=== PATIENT | male | born 1965 | race African-American/Black ===

== ENCOUNTER 2018-08-19 14:29 | Inpatient (IN) ==
[2018-08-19] MEDS ORDERED: COCAINE SUBSTITUTE 30 ML BOTTLE TOP ONE (15:21)
[2018-08-19 16:04] LABS: Basophils % 0.1 % (0.0-0.8); Eosinophils % 0.2 % (0.00-10.9); Hematocrit 36.6 VOL% (42.0-52.0); Hemoglobin 12.3 GM/DL (14.0-18.0); Immature Granulocytes % 0.7 %; Immature Granulocytes Absolute 0.11 #; Lymphocytes # 2.3 10*3/uL (1.4-4.0); Lymphocytes % 14.3 % (21.2-54.2); Mean Corpuscular HGB Conc 33.6 GM/DL (32-36); Mean Corpuscular Hemoglobin 33 PG (27-34); Mean Corpuscular Volume 98.1 FL (87-102); Mean Platelet Volume 8.6 FL (9.6-12.0); Monocytes # 1.1 10*3/uL (0.11-0.8); Monocytes % 6.5 % (1.7-12.7); Neutrophils # 12.8 10*3/uL (1.4-7.4); Neutrophils % 78.2 % (38.7-73.9); Platelet Count 272 T/CUMM (130-400); Red Blood Count 3.73 MC/CUMM (3.8-5.5); Red Cell Distribution Width 13.9 % (9.3-17.3); White Blood Count 16.3 T/CUMM (4-12)
[2018-08-19 16:50] LABS: Hypochromasia 1+; Lymphocytes 13 % (20-55); Platelet Estimate Normal; Segmented Neutrophils 83 % (50-85); Total Cells Counted 100
[2018-08-19 16:52] LABS: Apearance,Urine CLEAR (Clear); Bilirubin,Urine Negative (Negative); Blood, Urine Negative (Negative); Glucose,Urine (UA) Negative (Negative); Ketones,Urine Negative (Negative); Nitrite,Urine Negative (Negative); Protein,Urine Negative; RBC,Urine 2 /HPF (0-4); Squamous Epithelial Cell,Urine Occasional /HPF (0-10); Urine Color Yellow (Yellow); Urine Specific Gravity 1.017 (1.001-1.035); Urine Urobilinogen < 2.0 EU/DL (0.2-1.0); WBC,Urine 3 /HPF (0-6)
[2018-08-19 16:56] LABS: Anisocytosis 1+
[2018-08-19 16:57] LABS: Microcytosis 1+
[2018-08-19 17:01] LABS: Barbiturates Screen,Urine Negative (Negative); Benzodiazepines Screen,Urine Negative (Negative); Cannabinoid Screen,Urine Negative (Negative); Opiate Screen,Urine Negative (Negative); Phencyclidine Screen,Urine Negative (Negative)
[2018-08-19] MEDS ORDERED: LEVOFLOXACIN INJ 500 MG in PREMIX 1 EACH IV STA (17:02)
[2018-08-19] MEDS ORDERED: SULFAMETHOX/TRIMETHOPRIM 800-160 MG TABLET PO STA (17:02)
[2018-08-19] MEDS ORDERED: ONDANSETRON 4 MG/2 ML VIAL IV PRN (17:37)
[2018-08-19] MEDS ORDERED: ACETAMINOPHEN 325 MG TABLET PO PRN (17:37)
[2018-08-19 18:01] LABS: Alanine Aminotransferase 37 U/L (16-61); Albumin 3.3 G/DL (3.4-5.0); Alkaline Phosphatase 83 U/L (45-117); Aspartate Amino Transferase 35 U/L (0-37); Bilirubin,Total < 0.39 MG/DL (0.2-1.0); Blood Urea Nitrogen 13 MG/DL (7-18); Calcium 8.5 MG/DL (8.5-10.1); Glucose 100 MG/DL (74-106); Osmolality,Calculated 265.4 MOS/KG (273-304); Potassium 4.1 MMOL/L (3.5-5.1); Sodium 133 MMOL/L (136-145); Total Protein 7.8 G/DL (6.4-8.3)
[2018-08-19] MEDS ORDERED: ALBUTEROL 2.5 MG/3 ML NEB RESP TX PRN (19:00)
[2018-08-19] MEDS: ALBUTEROL/IPRATROPIUM 3 ML NEB RESP TX SCH (19:09)
[2018-08-19] MEDS: CARVEDILOL 6.25 MG TABLET PO SCH (21:51)
[2018-08-19] MEDS: GABAPENTIN 100 MG CAPSULE PO SCH (21:51)
[2018-08-19] MEDS: DOXEPIN 100 MG CAPSULE PO SCH (21:54)
[2018-08-20] MEDS: ALBUTEROL/IPRATROPIUM 3 ML NEB RESP TX SCH ×4 (01:00→19:17)
[2018-08-20 05:53] LABS: Basophils % 0.2 % (0.0-0.8); Eosinophils % 0.1 % (0.00-10.9); Hematocrit 36.3 VOL% (42.0-52.0); Hemoglobin 12.3 GM/DL (14.0-18.0); Immature Granulocytes % 0.6 %; Immature Granulocytes Absolute 0.09 #; Lymphocytes % 13.1 % (21.2-54.2); Mean Corpuscular HGB Conc 33.9 GM/DL (32-36); Mean Corpuscular Hemoglobin 33 PG (27-34); Mean Corpuscular Volume 96.5 FL (87-102); Mean Platelet Volume 8.6 FL (9.6-12.0); Monocytes # 1.3 10*3/uL (0.11-0.8); Monocytes % 8.1 % (1.7-12.7); Neutrophils % 77.9 % (38.7-73.9); Platelet Count 213 T/CUMM (130-400); Red Blood Count 3.76 MC/CUMM (3.8-5.5); Red Cell Distribution Width 13.8 % (9.3-17.3); White Blood Count 15.4 T/CUMM (4-12)
[2018-08-20 06:16] LABS: Band Neutrophils 3 % (0-10); Hypochromasia 1+; Lymphocytes 13 % (20-55); Microcytosis Slight; Ovalocytes Slight; Platelet Estimate Adequate; Segmented Neutrophils 81 % (50-85); Total Cells Counted 100
[2018-08-20 06:58] LABS: Calcium 8.5 MG/DL (8.5-10.1); Osmolality,Calculated 267.2 MOS/KG (273-304); Potassium 4.1 MMOL/L (3.5-5.1); Risk Ratio 2.06; Thyroid Stimulating Hormone 1.69 uIU/ml (0.358-3.74); VLDL CHOLESTEROL 11.6 MG/DL
[2018-08-20] MEDS ORDERED: Elviteg/Cob/Emtri/Tenof Alafen [Genvoya Tablet] PO SCH (09:00)
[2018-08-20] MEDS ORDERED: SERTRALINE 100 MG TABLET PO SCH (09:00)
[2018-08-20] MEDS: LORATADINE 10 MG TABLET PO SCH (09:16)
[2018-08-20] MEDS: PANTOPRAZOLE 40 MG TABLET PO SCH (09:16)
[2018-08-20] MEDS: SULFAMETHOX/TRIMETHOPRIM 800-160 MG TABLET PO SCH (09:16)
[2018-08-20] MEDS: ATORVASTATIN 80 MG TABLET PO SCH (09:16)
[2018-08-20] MEDS: SERTRALINE 100 MG TABLET PO SCH (09:17)
[2018-08-20] MEDS: CARVEDILOL 6.25 MG TABLET PO SCH ×2 (09:17→18:12)
[2018-08-20] MEDS: CLOPIDOGREL 75 MG TABLET PO SCH (09:17)
[2018-08-20] MEDS: MULTIVITAMIN (CENTRUM) TABLET PO SCH (09:17)
[2018-08-20] MEDS: GABAPENTIN 100 MG CAPSULE PO SCH ×3 (09:17→20:49)
[2018-08-20] MEDS: LISINOPRIL 5 MG TABLET PO SCH (09:17)
[2018-08-20] MEDS: TAMSULOSIN 0.4 MG CAPSULE PO SCH (09:17)
[2018-08-20] MEDS: CHOLECALCIFEROL 5,000 UNIT TABLET PO SCH (09:17)
[2018-08-20] MEDS ORDERED: LORazepam 2 MG/1 ML VIAL IV PRN (12:10)
[2018-08-20] MEDS ORDERED: LEVOFLOXACIN INJ 750 MG in PREMIX 1 EACH IV SCH (17:00)
[2018-08-20] MEDS: DOXEPIN 100 MG CAPSULE PO SCH (20:49)
[2018-08-21] MEDS: ALBUTEROL/IPRATROPIUM 3 ML NEB RESP TX SCH ×2 (00:16→08:29)
[2018-08-21 05:10] LABS: Basophils % 0.1 % (0.0-0.8); Eosinophils # 0.2 10*3/uL (0.0-0.87); Hematocrit 36.3 VOL% (42.0-52.0); Hemoglobin 12.1 GM/DL (14.0-18.0); Immature Granulocytes % 0.7 %; Immature Granulocytes Absolute 0.05 #; Lymphocytes # 1.2 10*3/uL (1.4-4.0); Lymphocytes % 16.2 % (21.2-54.2); Mean Corpuscular HGB Conc 33.3 GM/DL (32-36); Mean Corpuscular Hemoglobin 33 PG (27-34); Mean Corpuscular Volume 97.6 FL (87-102); Mean Platelet Volume 8.8 FL (9.6-12.0); Monocytes # 0.7 10*3/uL (0.11-0.8); Monocytes % 9.7 % (1.7-12.7); Neutrophils # 5.4 10*3/uL (1.4-7.4); Neutrophils % 71.3 % (38.7-73.9); Platelet Count 227 T/CUMM (130-400); Red Blood Count 3.72 MC/CUMM (3.8-5.5); White Blood Count 7.6 T/CUMM (4-12)
[2018-08-21 05:47] LABS: Calcium 8.9 MG/DL (8.5-10.1); Osmolality,Calculated 275.7 MOS/KG (273-304); Potassium 4.3 MMOL/L (3.5-5.1)
[2018-08-21 08:06] VITALS: BP 92/68
[2018-08-21] MEDS: CARVEDILOL 6.25 MG TABLET PO SCH (08:48)
[2018-08-21] MEDS: CHOLECALCIFEROL 5,000 UNIT TABLET PO SCH (08:49)
[2018-08-21] MEDS: LISINOPRIL 5 MG TABLET PO SCH (08:49)
[2018-08-21] MEDS: MULTIVITAMIN (CENTRUM) TABLET PO SCH (08:50)
[2018-08-21] MEDS: PANTOPRAZOLE 40 MG TABLET PO SCH (08:50)
[2018-08-21] MEDS: TAMSULOSIN 0.4 MG CAPSULE PO SCH (08:50)
[2018-08-21] MEDS: ATORVASTATIN 80 MG TABLET PO SCH (08:50)
[2018-08-21] MEDS: CLOPIDOGREL 75 MG TABLET PO SCH (08:50)
[2018-08-21] MEDS: LORATADINE 10 MG TABLET PO SCH (08:50)
[2018-08-21] MEDS: SERTRALINE 100 MG TABLET PO SCH (08:50)
[2018-08-21] MEDS: SULFAMETHOX/TRIMETHOPRIM 800-160 MG TABLET PO SCH (08:50)
[2018-08-21] MEDS: GABAPENTIN 100 MG CAPSULE PO SCH (08:50)
[2018-08-21] MEDS ORDERED: LEVOFLOXACIN 750 MG TABLET PO SCH (09:00)
[2018-08-21] MEDS ORDERED: LEVOFLOXACIN 500 MG TABLET PO ONE (10:00)
[2018-08-21 20:21] LABS: % CD4 (T Cells) 33 % (32-64); % CD8 (T Cells) 55 % (11-40); 4/8 Ratio 0.6 (>=0.9)
== END 2018-08-21 09:35 | DRG 195 ==
LOC: N.ED 14:29 → N.EDINP 17:35 → N.2E 17:53
PROVIDERS: ADMIT Emergency Medicine; ATTEND Emergency Medicine